=== PATIENT | male | born 1995 ===

== ENCOUNTER 2021-09-12 15:28 | Emergency (ER) | payer MEDICAID ==
[~2021-09-12] VITALS: Ht 185.4 cm; Wt 82.0 kg
[2021-09-12] MEDS ORDERED: IBUPROFEN 600MG TABLET PO ONE (16:15)
[2021-09-12] MEDS ORDERED: IBUP-2029 MT (16:42)
[2021-09-12 17:02] VITALS: BP 118/77
== END 2021-09-12 17:13 | disposition home or self-care (01) ==
LOC: ER 15:28
DX: S60.212A Contusion of left wrist, initial encounter (principal); W18.39XA Other fall on same level, initial encounter; Y93.89 Activity, other specified; Y92.89 Other specified places as the place of occurrence of the external cause; Y99.8 Other external cause status
CPT/HCPCS: 29125; 73110; 99283